=== PATIENT | female | born 1980 | race African-American/Black ===

== ENCOUNTER 2017-07-10 11:53 | Inpatient (IN) | payer OTHER, SELFPAY ==
[2017-07-10 12:21] LABS: Bilirubin Negative (Negative); Blood, Urine Small (Negative); Glucose, Urine (Dipstick) Negative (Negative); Ketone, Urine 15 mg/dL (Negative); Nitrite Negative (Negative); Protein, Urine (Dipstick) Negative (Neg-Trace); Urobilinogen 0.2 mg/dL (0.2-1.0)
[2017-07-10 12:35] LABS: Bacteria/HPF None Seen HPF (None Seen); Hyaline Casts/LPF 0-3 HYALINE CAST LPF (0-3 Hyaline); RBC/HPF None Seen HPF (0-3); Squamous Epithelial 0-3 HPF (0-3); WBC/HPF None Seen HPF (0-3)
[2017-07-10] MEDS ORDERED: Ketorolac Tromethamine 30 MG/ML VIAL ONE (12:37)
[2017-07-10 12:38] LABS: #Basophils 0.1 thou/uL (0.0-0.2); #Lymphocytes 1.4 thou/uL (1.20-3.40); #Monocytes 0.6 thou/uL (0.11-0.59); #Neutrophils 7.4 thou/uL (1.40-6.50); %Basophils 0.7 % (0.0-1.0); %Eosinophils 0.2 % (0.0-10.0); %Monocytes 6.7 % (0.0-10.0); Hematocrit 36.1 % (36.0-47.0); Mean Platelet Volume 7.6 fL (7.4-10.4); Red Blood Cell (RBC) Count 3.64 mill/uL (4.20-5.40); White Blood Cell (WBC) Count 9.5 thou/uL (4.8-10.8)
[2017-07-10 12:45] LABS: PTT 26.6 SEC (22.9-36.1); Prothrombin Time 13.8 SEC (12.0-14.7)
[2017-07-10 12:55] LABS: ALT (SGPT) 35 U/L (8-55); AST (SGOT) 62 U/L (5-34); Alkaline Phosphatase 52 U/L (40-150); Anion Gap 17 mmol/L (10-20); BUN (Urea Nitrogen) 7 mg/dL (7.0-18.7); Bilirubin, Total 0.4 mg/dL (0.2-1.2); CK (CPK) 2445 U/L (29-168); Calc. Creatinine Clearance 0 mL/min (70-130); Calcium 8.9 mg/dL (7.8-10.44); Carbon Dioxide 20 mmol/L (22-29); Chloride 102 mmol/L (98-107); Estimated GFR-MDRD Greater than 90; Globulin 3.5 g/dL (2.4-3.5); Lipase 7 U/L (8-78); Magnesium 2.4 mg/dL (1.6-2.6); Protein, Total 7.5 g/dL (6.0-8.3)
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
[2017-07-10] MEDS ORDERED: Lidocaine 1% (PF) 30 ML VIAL ONE (14:35)
[2017-07-10] MEDS ORDERED: Bupivacaine 0.25% 10 ML VIAL ONE (14:35)
--- NOTE | 2017-07-10 15:05 | RAD ---
PORTABLE AP CHEST: Date: 07-10-17 History: Chest injury. FINDINGS: There is increased density seen at the right lung base which may be related to atelectasis. There is no pneumothorax or obvious pleural effusion. Cardiac silhouette and pulmonary vasculature are withi n normal limits for the portable technique of the study. Osseous structures are intact. No obvious f racture is seen. IMPRESSION: 1. Atelectasis right lung base. 2. No acute cardiopulmonary process. POS: [facility]
[2017-07-10] MEDS ORDERED: Promethazine HCl 25 MG/ML VIAL IM PRN ×2 (16:40)
[2017-07-10] MEDS ORDERED: Rib Fracture Protocol PO SCH (16:40)
[2017-07-10] MEDS ORDERED: Ondansetron HCl/PF 4 MG/2 ML Vial IVP PRN (16:40)
[2017-07-10] MEDS ORDERED: Dextrose 50% Abboject 50 ML SYRINGE SLOW IVP PRN (16:40)
[2017-07-10] MEDS ORDERED: Ondansetron ODT 4 MG TAB PO PRN (16:40)
[2017-07-10] MEDS ORDERED: Dextrose 5% in Water 1,000 ML IV PRN (16:40)
[2017-07-10] MEDS ORDERED: Cyclobenzaprine 10 MG TAB PO PRN (17:00)
[2017-07-10] MEDS: traMADol HCl 50 MG TAB PO SCH (17:40)
[2017-07-10] MEDS ORDERED: Acetaminophen 500 MG TAB PO SCH (18:00)
[2017-07-10] MEDS ORDERED: Ibuprofen 600 MG TAB PO SCH (18:00)
[2017-07-10 18:24] VITALS: BMI 21.6
[2017-07-10] MEDS: Sodium Chloride 0.9% 1,000 ML IV SCH (18:46)
[2017-07-10] MEDS: Famotidine 20 MG TAB PO SCH (21:45)
[2017-07-10] MEDS: Gabapentin 100 MG CAP PO SCH (21:45)
[2017-07-11] MEDS: traMADol HCl 50 MG TAB PO SCH ×5 (00:06→23:25)
[2017-07-11] MEDS: HYDROcodone/Acetaminophen 10/325 mg Tablet PO SCH ×6 (00:07→21:06)
[2017-07-11] MEDS: Ketorolac Tromethamine 30 MG/ML VIAL IVP SCH ×5 (00:07→23:26)
[2017-07-11] MEDS: Sodium Chloride 0.9% 1,000 ML IV SCH ×2 (05:25→06:01)
[2017-07-11 05:56] LABS: #Eosinphils 0.1 thou/uL (0.0-0.7); #Lymphocytes 2.2 thou/uL (1.20-3.40); #Monocytes 0.5 thou/uL (0.11-0.59); %Basophils 0.6 % (0.0-1.0); %Eosinophils 1.3 % (0.0-10.0); Hematocrit 29.5 % (36.0-47.0); Mean Platelet Volume 7.1 fL (7.4-10.4); Red Blood Cell (RBC) Count 2.94 mill/uL (4.20-5.40); White Blood Cell (WBC) Count 7.8 thou/uL (4.8-10.8)
[2017-07-11 06:35] LABS: Anion Gap 14 mmol/L (10-20); BUN (Urea Nitrogen) 9 mg/dL (7.0-18.7); Calc. Creatinine Clearance 108 mL/min (70-130); Carbon Dioxide 20 mmol/L (22-29); Chloride 107 mmol/L (98-107); Estimated GFR-MDRD Greater than 90
--- NOTE | 2017-07-11 07:44 | RAD ---
SINGLE VIEW OF THE CHEST: COMPARISON: 07/10/17. HISTORY: Right hemothorax. FINDINGS: A single view of the chest shows a cardiomediastinal silhouette which his upper limits of normal in size. There is a moderate-sized right pleural effusion. No pneumothorax is appreciated. IMPRESSION: Moderate right pleural effusion. POS: [facility]
[2017-07-11] MEDS ORDERED: Lidocaine 1% (PF) 30 ML VIAL SC SCH (07:45)
[2017-07-11] MEDS: Gabapentin 100 MG CAP PO SCH ×3 (08:33→21:06)
[2017-07-11] MEDS: Famotidine 20 MG TAB PO SCH ×2 (08:33→21:06)
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
[2017-07-11] MEDS ORDERED: Morphine Sulfate 2 MG/ML SYRINGE SLOW IVP PRN (15:35)
--- NOTE | 2017-07-11 20:34 | RAD ---
PORTABLE AP CHEST RADIOGRAPH: Date: 07-11-17 History: Right sided thoracotomy tube placement. Comparison: 07-11-17 FINDINGS: There has been interval placement of a right sided thoracotomy tube with tip overlying the medial ri ght lung apex. There has been interval decrease in right pleural effusion. There is a dense area of rounded opacity at the right lung base which may be related to an area of rounded atelectasis, but f ollow up to complete resolution is recommended. There is atelectasis at the left lung base. No pneum othorax is identified. Cardiac silhouette and pulmonary vasculature are within normal limits. No oth er interval change. IMPRESSION: 1. Interval placement right sided thoracotomy tube with almost complete resolution of right pleural effusion. 2. Volume loss at the right lung base. There is also a rounded area of increased density at the righ t lung base which could be related to rounded area of persistent atelectasis. However, follow up to complete resolution is recommended as other etiologies are not entirely excluded. POS: [facility]
[2017-07-12] MEDS: HYDROcodone/Acetaminophen 10/325 mg Tablet PO SCH ×7 (00:07→23:57)
[2017-07-12] MEDS: Sodium Chloride 0.9% 1,000 ML IV SCH ×2 (02:37→08:52)
[2017-07-12 06:16] LABS: #Eosinphils 0.1 thou/uL (0.0-0.7); #Lymphocytes 1.8 thou/uL (1.20-3.40); #Monocytes 0.6 thou/uL (0.11-0.59); #Neutrophils 6.5 thou/uL (1.40-6.50); %Basophils 0.4 % (0.0-1.0); %Eosinophils 1.4 % (0.0-10.0); %Lymphocytes 19.9 % (21.0-51.0); %Monocytes 6.9 % (0.0-10.0); Hematocrit 32.3 % (36.0-47.0); Red Blood Cell (RBC) Count 3.17 mill/uL (4.20-5.40)
[2017-07-12] MEDS: traMADol HCl 50 MG TAB PO SCH ×4 (06:17→23:57)
[2017-07-12] MEDS: Ketorolac Tromethamine 30 MG/ML VIAL IVP SCH ×4 (06:17→23:58)
[2017-07-12 07:39] LABS: Anion Gap 13 mmol/L (10-20); BUN (Urea Nitrogen) 6 mg/dL (7.0-18.7); Calc. Creatinine Clearance 111 mL/min (70-130); Calcium 8.5 mg/dL (7.8-10.44); Carbon Dioxide 19 mmol/L (22-29); Chloride 106 mmol/L (98-107); Estimated GFR-MDRD Greater than 90; Magnesium 2.2 mg/dL (1.6-2.6); Phosphorus 3.1 mg/dL (2.3-4.7)
[2017-07-12] MEDS: Gabapentin 100 MG CAP PO SCH ×2 (08:47→14:17)
[2017-07-12] MEDS: Famotidine 20 MG TAB PO SCH ×2 (08:47→22:07)
--- NOTE | 2017-07-12 09:27 | RAD ---
SINGLE VIEW OF THE CHEST: Comparison: 07-11-17 History: Chest tube placement. FINDINGS: Single view of the chest shows a normal sized cardiomediastinal silhouette. A right sided chest tube is seen. The right pleural effusion has decreased in size. There are airspace opacities in both fitz gs which may represent multifocal pneumonia. No pneumothorax is seen. IMPRESSION: 1. Multifocal pneumonia. 2. Decreased size of right pleural effusion after chest tube placement. POS: [facility]
[2017-07-12] MEDS ORDERED: Potassium Chloride 20 MEQ TAB PO SCH (12:30)
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
[2017-07-12] MEDS ORDERED: HYDROcodone/Acetaminophen 10/325 mg Tablet PO PRN (15:34)
[2017-07-12] MEDS: HYDROcodone/Acetaminophen 10/325 mg Tablet PO PRN (17:19)
[2017-07-12] MEDS: Cyclobenzaprine 10 MG TAB PO PRN (19:32)
--- NOTE | 2017-07-12 19:46 | RAD ---
PORTABLE AP CHEST X-RAY: 07/12/17 HISTORY: Shortness of breath and tachycardia. COMPARISON: 07/12/17 at 0648 hours. FINDINGS: Right sided thoracostomy tube remains in place and unchanged in position. Again noted are increased interstitial and alveolar opacities within the lungs bilaterally with more rounded confluent opacity seen at the right lung base which could be related to persistent rounded area of atelectasis or a r ounded pneumonia. No pleural effusion is evident. There has been no significant interval change when compared to the prior exam. IMPRESSION: 1. Multifocal interstitial and alveolar opacities likely related to infectious process. 2. Persistent dense rounded area of opacity at the right lung base which could be related to ei ther rounded area of atelectasis or pneumonia. Continued followup to complete resolution is recommen ded. 3. Right sided thoracostomy tube without a pneumothorax visualized. POS: [facility]
[2017-07-12] MEDS: Gabapentin 300 MG CAP PO SCH (22:07)
[2017-07-13] MEDS ORDERED: Oxazepam 10 MG CAP PO SCH ×2 (00:01→16:00)
[2017-07-13] MEDS ORDERED: Levalbuterol HCl 0.63 MG/3 ML NEB NEB SCH (00:15)
[2017-07-13] MEDS: HYDROcodone/Acetaminophen 10/325 mg Tablet PO SCH ×5 (04:12→19:38)
[2017-07-13] MEDS: traMADol HCl 50 MG TAB PO SCH ×4 (05:53→23:20)
[2017-07-13] MEDS: Oxazepam 10 MG CAP PO SCH ×4 (05:56→23:19)
[2017-07-13] MEDS: Ketorolac Tromethamine 30 MG/ML VIAL IVP SCH ×4 (05:56→23:17)
[2017-07-13] MEDS ORDERED: Potassium Chloride 40 MEQ in Sodium Chloride 0.9% 250 ML 250 ML IVPB SCH (06:45)
[2017-07-13] MEDS: Levalbuterol HCl 0.63 MG/3 ML NEB NEB SCH ×3 (07:01→21:38)
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
[2017-07-13 08:13] LABS: Red Blood Cell (RBC) Count 2.88 mill/uL (4.20-5.40); White Blood Cell (WBC) Count 8.3 thou/uL (4.8-10.8)
[2017-07-13 08:14] LABS: #Eosinphils 0.1 thou/uL (0.0-0.7); #Lymphocytes 1.6 thou/uL (1.20-3.40); #Monocytes 0.7 thou/uL (0.11-0.59); #Neutrophils 5.9 thou/uL (1.40-6.50); %Basophils 0.3 % (0.0-1.0); %Eosinophils 1.5 % (0.0-10.0); %Lymphocytes 19.4 % (21.0-51.0); %Monocytes 8.5 % (0.0-10.0); Mean Platelet Volume 7.3 fL (7.4-10.4)
[2017-07-13] MEDS: Gabapentin 300 MG CAP PO SCH ×3 (08:31→20:48)
[2017-07-13] MEDS: Famotidine 20 MG TAB PO SCH ×2 (08:32→20:48)
[2017-07-13 08:34] LABS: ALT (SGPT) 19 U/L (8-55); AST (SGOT) 33 U/L (5-34); Alkaline Phosphatase 61 U/L (40-150); Anion Gap 12 mmol/L (10-20); BUN (Urea Nitrogen) 4 mg/dL (7.0-18.7); Bilirubin, Total 0.4 mg/dL (0.2-1.2); Calc. Creatinine Clearance 143 mL/min (70-130); Calcium 8.7 mg/dL (7.8-10.44); Carbon Dioxide 23 mmol/L (22-29); Chloride 105 mmol/L (98-107); Estimated GFR-MDRD Greater than 90
[2017-07-13 09:03] LABS: Magnesium 1.5 mg/dL (1.6-2.6); Phosphorus 3.7 mg/dL (2.3-4.7)
--- NOTE | 2017-07-13 10:38 | ULT ---
BILATERAL LOWER EXTREMITY VENOUS DUPLEX EXAM: HISTORY: Leg pain and edema. FINDINGS: Real-time color Doppler evaluation of the right and left lower extremities was performed from groin to calf. This includes evaluation of the common femoral, superficial and profunda femoral, saphenou s, popliteal, and trifurcation veins. This shows a patent deep venous system. There is normal comp ressibility and augmentation. There is no evidence of DVT. IMPRESSION: No evidence of deep vein thrombosis of either lower extremity. POS: [facility]
[2017-07-13] MEDS ORDERED: Furosemide 20 MG/2 ML VIAL SLOW IVP SCH ×2 (11:00→11:15)
[2017-07-13] MEDS: Enoxaparin Sodium 40 MG/0.4 ML SYRINGE SC SCH (11:04)
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
[2017-07-13] MEDS: cefTRIAXone\\ROCEPHIN 2 GM in Sodium Chloride 0.9% 100 ML IVPB SCH (12:16)
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
[2017-07-13] MEDS ORDERED: ISOVUE-370 76%-LOCM 1 ML ONE (14:07)
[2017-07-13] MEDS: Furosemide 20 MG/2 ML VIAL SLOW IVP SCH (15:04)
[2017-07-13] MEDS ORDERED: Senokot 8.6 MG TAB PO SCH (15:15)
[2017-07-13 23:36] LABS: #Basophils 0.1 thou/uL (0.0-0.2); #Eosinphils 0.1 thou/uL (0.0-0.7); #Lymphocytes 1.5 thou/uL (1.20-3.40); #Monocytes 1.1 thou/uL (0.11-0.59); #Neutrophils 7.5 thou/uL (1.40-6.50); %Basophils 0.7 % (0.0-1.0); %Eosinophils 1.3 % (0.0-10.0); %Lymphocytes 14.9 % (21.0-51.0); %Monocytes 10.9 % (0.0-10.0); Hematocrit 29.6 % (36.0-47.0); Mean Platelet Volume 6.9 fL (7.4-10.4); Red Blood Cell (RBC) Count 2.92 mill/uL (4.20-5.40); White Blood Cell (WBC) Count 10.3 thou/uL (4.8-10.8)
[2017-07-14] LABS: Anion Gap 15 mmol/L (10-20); BUN (Urea Nitrogen) 9 mg/dL (7.0-18.7); Calc. Creatinine Clearance 125 mL/min (70-130); Carbon Dioxide 26 mmol/L (22-29); Chloride 98 mmol/L (98-107); Estimated GFR-MDRD Greater than 90; Magnesium 1.5 mg/dL (1.6-2.6); Phosphorus 3.2 mg/dL (2.3-4.7)
[2017-07-14] MEDS: HYDROcodone/Acetaminophen 10/325 mg Tablet PO SCH ×6 (00:04→20:00)
[2017-07-14] MEDS ORDERED: Magnesium Sulfate 4 GM in Sodium Chloride 0.9% 250 ML 250 ML IVPB SCH (00:30)
[2017-07-14 04:26] LABS: #Eosinphils 0.2 thou/uL (0.0-0.7); #Lymphocytes 1.8 thou/uL (1.20-3.40); #Monocytes 0.9 thou/uL (0.11-0.59); #Neutrophils 7.1 thou/uL (1.40-6.50); %Basophils 0.3 % (0.0-1.0); %Eosinophils 1.6 % (0.0-10.0); %Lymphocytes 17.7 % (21.0-51.0); %Monocytes 9.4 % (0.0-10.0); Hematocrit 29.8 % (36.0-47.0); Mean Platelet Volume 7.7 fL (7.4-10.4); Red Blood Cell (RBC) Count 2.95 mill/uL (4.20-5.40)
[2017-07-14 04:55] LABS: Anion Gap 13 mmol/L (10-20); BUN (Urea Nitrogen) 8 mg/dL (7.0-18.7); Calc. Creatinine Clearance 130 mL/min (70-130); Calcium 8.7 mg/dL (7.8-10.44); Carbon Dioxide 27 mmol/L (22-29); Chloride 98 mmol/L (98-107); Estimated GFR-MDRD Greater than 90; Magnesium 3.2 mg/dL (1.6-2.6); Phosphorus 4.2 mg/dL (2.3-4.7)
[2017-07-14] MEDS: traMADol HCl 50 MG TAB PO SCH ×3 (05:45→17:11)
[2017-07-14] MEDS: Furosemide 20 MG/2 ML VIAL SLOW IVP SCH ×2 (05:47→13:54)
[2017-07-14] MEDS: Levalbuterol HCl 0.63 MG/3 ML NEB NEB SCH ×3 (07:46→22:02)
[2017-07-14] MEDS: Enoxaparin Sodium 40 MG/0.4 ML SYRINGE SC SCH (07:56)
[2017-07-14] MEDS: Polyethylene Glycol 3350 17 GM Packet PO SCH (07:56)
[2017-07-14] MEDS: Famotidine 20 MG TAB PO SCH ×2 (07:57→21:20)
[2017-07-14] MEDS: Gabapentin 300 MG CAP PO SCH ×3 (07:57→21:20)
[2017-07-14] MEDS: Oxazepam 10 MG CAP PO SCH ×3 (07:57→21:30)
[2017-07-14] MEDS ORDERED: Furosemide 20 MG/2 ML VIAL SLOW IVP SCH (08:10)
[2017-07-14] MEDS ORDERED: Potassium Chloride 40 MEQ in Sodium Chloride 0.9% 250 ML 250 ML IVPB SCH ×2 (08:30→09:30)
--- NOTE | 2017-07-14 09:05 | EKG ---
Test Reason : STAT Blood Pressure : / mmHG Vent. Rate : 131 BPM Atrial Rate : 131 BPM P-R Int : 162 ms QRS Dur : 084 ms QT Int : 282 ms P-R-T Axes : 047 052 003 degrees QTc Int : 416 ms Sinus tachycardia Nonspecific T wave abnormality Abnormal ECG When compared with ECG of 10-JUL-2017 12:02, (Unconfirmed) Inverted T waves have replaced nonspecific T wave abnormality in Inferior leads Nonspecific T wave abnormality now evident in Anterior leads Confirmed by TRISTON LUZ ([id number]) on 07/14/2017 9:05:26 AM Referred By: SIRISHA Confirmed By:TRISTON LUZ
[2017-07-14] MEDS: cefTRIAXone\\ROCEPHIN 2 GM in Sodium Chloride 0.9% 100 ML IVPB SCH (13:54)
[2017-07-15] MEDS: traMADol HCl 50 MG TAB PO SCH ×2 (00:09→06:28)
[2017-07-15] MEDS: HYDROcodone/Acetaminophen 10/325 mg Tablet PO SCH ×5 (00:10→20:46)
[2017-07-15] MEDS: Oxazepam 10 MG CAP PO SCH ×2 (04:32→20:46)
[2017-07-15] MEDS: Furosemide 20 MG/2 ML VIAL SLOW IVP SCH ×2 (06:30→14:57)
[2017-07-15] MEDS: Levalbuterol HCl 0.63 MG/3 ML NEB NEB SCH ×3 (06:48→22:10)
[2017-07-15] MEDS: Polyethylene Glycol 3350 17 GM Packet PO SCH (08:07)
[2017-07-15] MEDS: Gabapentin 300 MG CAP PO SCH ×3 (08:09→20:46)
[2017-07-15] MEDS: Famotidine 20 MG TAB PO SCH ×2 (08:09→20:46)
[2017-07-15] MEDS: Enoxaparin Sodium 40 MG/0.4 ML SYRINGE SC SCH (08:10)
[2017-07-15] MEDS ORDERED: Potassium Chloride 40 MEQ in Sodium Chloride 0.9% 250 ML 250 ML IVPB SCH (08:30)
[2017-07-15 09:40] LABS: Anion Gap 17 mmol/L (10-20); BUN (Urea Nitrogen) 15 mg/dL (7.0-18.7); Calc. Creatinine Clearance 94 mL/min (70-130); Carbon Dioxide 24 mmol/L (22-29); Chloride 95 mmol/L (98-107); Estimated GFR-MDRD 84; Magnesium 2.2 mg/dL (1.6-2.6)
--- NOTE | 2017-07-15 10:53 | RAD ---
PORTABLE CHEST 1 VIEW: Date: 07/15/17 Time: 0903 hours HISTORY: Hypoxia, rib fractures, chest tube removal. FINDINGS/IMPRESSION: There has been interval removal of the right-sided chest tube since exam of 07/13/17. No definite pn eumothorax is seen. Remainder of exam is otherwise stable. POS: [facility]
[2017-07-15] MEDS: cefTRIAXone\\ROCEPHIN 2 GM in Sodium Chloride 0.9% 100 ML IVPB SCH (11:08)
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
[2017-07-16] MEDS: HYDROcodone/Acetaminophen 10/325 mg Tablet PO PRN ×2 (00:11→23:46)
[2017-07-16] MEDS: HYDROcodone/Acetaminophen 10/325 mg Tablet PO SCH ×4 (03:30→20:35)
[2017-07-16] MEDS: Levalbuterol HCl 0.63 MG/3 ML NEB NEB SCH ×3 (06:31→23:53)
[2017-07-16] MEDS: Furosemide 20 MG/2 ML VIAL SLOW IVP SCH (06:42)
[2017-07-16 09:10] LABS: Anion Gap 19 mmol/L (10-20); BUN (Urea Nitrogen) 12 mg/dL (7.0-18.7); Calc. Creatinine Clearance 113 mL/min (70-130); Calcium 9.2 mg/dL (7.8-10.44); Carbon Dioxide 27 mmol/L (22-29); Chloride 93 mmol/L (98-107); Estimated GFR-MDRD Greater than 90; Magnesium 2.2 mg/dL (1.6-2.6); Phosphorus 3.8 mg/dL (2.3-4.7)
[2017-07-16] MEDS: Polyethylene Glycol 3350 17 GM Packet PO SCH (09:16)
[2017-07-16] MEDS: Oxazepam 10 MG CAP PO SCH ×2 (09:16→20:35)
[2017-07-16] MEDS: Gabapentin 300 MG CAP PO SCH ×3 (09:16→20:35)
[2017-07-16] MEDS: Enoxaparin Sodium 40 MG/0.4 ML SYRINGE SC SCH (09:17)
[2017-07-16] MEDS: Famotidine 20 MG TAB PO SCH ×2 (09:17→20:35)
[2017-07-16] MEDS: cefTRIAXone\\ROCEPHIN 2 GM in Sodium Chloride 0.9% 100 ML IVPB SCH (12:06)
[2017-07-16] MEDS: Cyclobenzaprine 10 MG TAB PO PRN (12:07)
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
[2017-07-17] MEDS: HYDROcodone/Acetaminophen 10/325 mg Tablet PO SCH ×4 (02:05→21:24)
[2017-07-17] MEDS: Cyclobenzaprine 10 MG TAB PO PRN ×2 (02:06→18:04)
[2017-07-17 05:50] LABS: #Basophils 0.1 thou/uL (0.0-0.2); #Eosinphils 0.2 thou/uL (0.0-0.7); #Lymphocytes 2.2 thou/uL (1.20-3.40); #Monocytes 1.3 thou/uL (0.11-0.59); #Neutrophils 5.7 thou/uL (1.40-6.50); %Basophils 0.6 % (0.0-1.0); %Lymphocytes 23.4 % (21.0-51.0); %Monocytes 13.3 % (0.0-10.0); Hematocrit 28.6 % (36.0-47.0); Mean Platelet Volume 8.3 fL (7.4-10.4); Red Blood Cell (RBC) Count 2.83 mill/uL (4.20-5.40); White Blood Cell (WBC) Count 9.4 thou/uL (4.8-10.8)
[2017-07-17 06:16] LABS: Anion Gap 13 mmol/L (10-20); BUN (Urea Nitrogen) 7 mg/dL (7.0-18.7); Calc. Creatinine Clearance 113 mL/min (70-130); Calcium 9.7 mg/dL (7.8-10.44); Carbon Dioxide 31 mmol/L (22-29); Chloride 93 mmol/L (98-107); Estimated GFR-MDRD Greater than 90; Magnesium 2.2 mg/dL (1.6-2.6); Phosphorus 3.2 mg/dL (2.3-4.7)
[2017-07-17] MEDS: Levalbuterol HCl 0.63 MG/3 ML NEB NEB SCH ×2 (08:17→14:51)
[2017-07-17] MEDS ORDERED: Potassium Chloride 20 MEQ TAB PO SCH (08:30)
[2017-07-17] MEDS: Famotidine 20 MG TAB PO SCH ×2 (08:47→21:23)
[2017-07-17] MEDS: Oxazepam 10 MG CAP PO SCH ×2 (08:47→21:23)
[2017-07-17] MEDS: Gabapentin 300 MG CAP PO SCH ×3 (08:47→21:23)
[2017-07-17] MEDS: Polyethylene Glycol 3350 17 GM Packet PO SCH (08:47)
[2017-07-17] MEDS: Enoxaparin Sodium 40 MG/0.4 ML SYRINGE SC SCH (08:50)
[2017-07-17] MEDS ORDERED: Furosemide 20 MG TAB PO SCH (09:00)
--- NOTE | 2017-07-17 10:29 | RAD ---
RADIOGRAPH CHEST 1 VIEW: Date: 07/17/17 Time: 0547 HOURS HISTORY: 36-year-old female with hypoxia. COMPARISON: 07/15/17 at 0903 hours. FINDINGS: There has been no significant interval change. Lung volumes are low. IMPRESSION: 1. Bilaterally heterogeneously distributed mixed interstitial and air space densities. 2. Cardiomegaly. 3. No evidence of pneumothorax. 4. No interval change. AMELIA [] POS: STEPHANY
[2017-07-17] MEDS ORDERED: AcetaZOLAMIDE 250 MG TAB PO SCH (12:30)
[2017-07-17] MEDS: cefTRIAXone\\ROCEPHIN 2 GM in Sodium Chloride 0.9% 100 ML IVPB SCH (12:38)
[2017-07-17] MEDS: HYDROcodone/Acetaminophen 10/325 mg Tablet PO PRN (12:40)
[2017-07-17] MEDS: Ibuprofen 800 MG TAB PO SCH ×2 (14:29→21:23)
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
[2017-07-17] MEDS ORDERED: FLU VACC QS2017-18 36 mo. & older 0.5 ML SYRINGE IM ONE (21:00)
[2017-07-17] MEDS: AcetaZOLAMIDE 250 MG TAB PO SCH (21:23)
[2017-07-18] MEDS: Levalbuterol HCl 0.63 MG/3 ML NEB NEB SCH ×4 (00:04→22:43)
[2017-07-18] MEDS: HYDROcodone/Acetaminophen 10/325 mg Tablet PO SCH ×2 (02:25→08:26)
[2017-07-18 05:45] LABS: Anion Gap 12 mmol/L (10-20); BUN (Urea Nitrogen) 10 mg/dL (7.0-18.7); Calc. Creatinine Clearance 92 mL/min (70-130); Calcium 9.6 mg/dL (7.8-10.44); Carbon Dioxide 28 mmol/L (22-29); Chloride 101 mmol/L (98-107); Estimated GFR-MDRD 82; Magnesium 2.4 mg/dL (1.6-2.6); Phosphorus 4.5 mg/dL (2.3-4.7)
[2017-07-18] MEDS: Ibuprofen 800 MG TAB PO SCH ×3 (05:46→21:29)
[2017-07-18] MEDS ORDERED: Potassium Chloride 20 MEQ TAB PO SCH (07:45)
[2017-07-18] MEDS: Oxazepam 10 MG CAP PO SCH ×2 (08:26→21:30)
[2017-07-18] MEDS: AcetaZOLAMIDE 250 MG TAB PO SCH ×2 (08:27→21:30)
[2017-07-18] MEDS: Famotidine 20 MG TAB PO SCH ×2 (08:27→21:29)
[2017-07-18] MEDS: Enoxaparin Sodium 40 MG/0.4 ML SYRINGE SC SCH (08:27)
[2017-07-18] MEDS: Polyethylene Glycol 3350 17 GM Packet PO SCH (08:27)
[2017-07-18] MEDS: Gabapentin 300 MG CAP PO SCH ×3 (08:27→21:29)
[2017-07-18 12:17] LABS: Amphetamine Not Detected (NotDetected); Methadone Not Detected (NotDetected); Methamphetamine Not Detected (NotDetected)
[2017-07-18] MEDS: cefTRIAXone\\ROCEPHIN 2 GM in Sodium Chloride 0.9% 100 ML IVPB SCH (12:20)
[2017-07-18] MEDS: HYDROcodone/Acetaminophen 7.5/325 mg Tablet PO SCH ×3 (12:20→21:29)
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
[2017-07-18] MEDS: HYDROcodone/Acetaminophen 7.5/325 mg Tablet PO PRN (18:48)
[2017-07-19] MEDS: HYDROcodone/Acetaminophen 7.5/325 mg Tablet PO SCH ×4 (06:06→22:15)
[2017-07-19] MEDS: Ibuprofen 800 MG TAB PO SCH ×3 (06:06→22:15)
[2017-07-19 06:26] LABS: Anion Gap 13 mmol/L (10-20); BUN (Urea Nitrogen) 8 mg/dL (7.0-18.7); Calc. Creatinine Clearance 109 mL/min (70-130); Calcium 9.2 mg/dL (7.8-10.44); Carbon Dioxide 18 mmol/L (22-29); Chloride 109 mmol/L (98-107); Estimated GFR-MDRD Greater than 90; Magnesium 2.5 mg/dL (1.6-2.6); Phosphorus 5.5 mg/dL (2.3-4.7)
[2017-07-19] MEDS: Levalbuterol HCl 0.63 MG/3 ML NEB NEB SCH ×3 (06:48→22:42)
[2017-07-19] MEDS: Polyethylene Glycol 3350 17 GM Packet PO SCH (08:15)
[2017-07-19] MEDS: Enoxaparin Sodium 40 MG/0.4 ML SYRINGE SC SCH (08:15)
[2017-07-19] MEDS: AcetaZOLAMIDE 250 MG TAB PO SCH (08:16)
[2017-07-19] MEDS: HYDROcodone/Acetaminophen 7.5/325 mg Tablet PO PRN (08:17)
[2017-07-19] MEDS: Famotidine 20 MG TAB PO SCH ×3 (08:21→20:54)
[2017-07-19] MEDS: Gabapentin 300 MG CAP PO SCH ×4 (08:21→20:54)
[2017-07-19] MEDS: Oxazepam 10 MG CAP PO SCH ×3 (08:21→20:54)
--- NOTE | 2017-07-19 09:12 | RAD ---
CHEST 2 VIEWS: HISTORY: Pneumothorax. Rib fracture. Followup. COMPARISON: 07/17/17. FINDINGS: Cardiac silhouette is enlarged. Pulmonary vasculature is slightly less engorged than on the previou s exam. Reticulonodular interstitial prominence throughout each lung is less pronounced than on the previous exam. Mediastinum is midline. No pneumothorax is apparent. No significant pleural fluid is visible. IMPRESSION: No evidence of pneumothorax. Improved aeration of the lungs. POS: [facility]
[2017-07-19] MEDS: Furosemide 20 MG TAB PO SCH ×3 (09:45→20:54)
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
[2017-07-19] MEDS: cefTRIAXone\\ROCEPHIN 2 GM in Sodium Chloride 0.9% 100 ML IVPB SCH (12:32)
[2017-07-20] MEDS: HYDROcodone/Acetaminophen 7.5/325 mg Tablet PO SCH ×3 (05:17→17:07)
[2017-07-20] MEDS: Ibuprofen 800 MG TAB PO SCH ×2 (05:17→14:46)
[2017-07-20 05:38] LABS: #Basophils 0.1 thou/uL (0.0-0.2); #Eosinphils 0.6 thou/uL (0.0-0.7); #Lymphocytes 2.7 thou/uL (1.20-3.40); #Monocytes 1.5 thou/uL (0.11-0.59); #Neutrophils 9.9 thou/uL (1.40-6.50); %Basophils 0.5 % (0.0-1.0); %Eosinophils 4.2 % (0.0-10.0); %Lymphocytes 18.1 % (21.0-51.0); %Monocytes 10.4 % (0.0-10.0); Hematocrit 30.9 % (36.0-47.0); Mean Platelet Volume 7.2 fL (7.4-10.4); Red Blood Cell (RBC) Count 3.02 mill/uL (4.20-5.40); White Blood Cell (WBC) Count 14.9 thou/uL (4.8-10.8)
[2017-07-20 05:59] LABS: Anion Gap 16 mmol/L (10-20); BUN (Urea Nitrogen) 7 mg/dL (7.0-18.7); Calc. Creatinine Clearance 106 mL/min (70-130); Calcium 9.6 mg/dL (7.8-10.44); Carbon Dioxide 17 mmol/L (22-29); Chloride 110 mmol/L (98-107); Estimated GFR-MDRD Greater than 90; Magnesium 2.4 mg/dL (1.6-2.6); Phosphorus 5.9 mg/dL (2.3-4.7)
[2017-07-20] MEDS: Levalbuterol HCl 0.63 MG/3 ML NEB NEB SCH ×2 (06:16→14:22)
[2017-07-20] MEDS: Oxazepam 10 MG CAP PO SCH (08:59)
[2017-07-20] MEDS: Gabapentin 300 MG CAP PO SCH ×2 (08:59→14:47)
[2017-07-20] MEDS: Furosemide 20 MG TAB PO SCH (08:59)
[2017-07-20] MEDS: Enoxaparin Sodium 40 MG/0.4 ML SYRINGE SC SCH (08:59)
[2017-07-20] MEDS: Famotidine 20 MG TAB PO SCH (08:59)
[2017-07-20] MEDS: Polyethylene Glycol 3350 17 GM Packet PO SCH (09:46)
[2017-07-20] MEDS: cefTRIAXone\\ROCEPHIN 2 GM in Sodium Chloride 0.9% 100 ML IVPB SCH (11:57)
[2017-07-20] MEDS ORDERED: Potassium Chloride 20 MEQ TAB PO SCH (17:00)
[2017-07-20 19:30] VITALS: BP 124/86; TEMP 98
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
== END 2017-07-20 19:31 | disposition home or self-care (01) | DRG 963 ==
LOC: ERS 11:53 → SURG A 16:18 → IMCU/EMU 07-13 01:29 → SURG B 07-16 18:41
PROVIDERS: ADMIT Surgery; ATTEND Surgery
PROC: 0W9900Z Drainage of Right Pleural Cavity with Drainage Device, Open Approach (ICD-10-PCS; principal; 2017-07-11)
PROC: 5A09357 Assistance with Respiratory Ventilation, Less than 24 Consecutive Hours, Continuous Positive Airway Pressure (ICD-10-PCS; 2017-07-13)
DX: S27.1XXA Traumatic hemothorax, initial encounter (principal); J81.0 Acute pulmonary edema; T79.6XXA Traumatic ischemia of muscle, initial encounter; E87.3 Alkalosis; S27.329A Contusion of lung, unspecified, initial encounter; E83.42 Hypomagnesemia; S22.41XA Multiple fractures of ribs, right side, initial encounter for closed fracture; F17.210 Nicotine dependence, cigarettes, uncomplicated; V47.1XXA Car passenger injured in collision with fixed or stationary object in nontraffic accident, initial encounter; E87.6 Hypokalemia; R06.89 Other abnormalities of breathing
CPT/HCPCS: 36415; 36416; 71010; 71020; 71275; 80048; 80053; 80306; 81003; 81015; 81025; 82553; 83690; 83735; 83880; 84100; 84484; 85025; 85610; 85730; 86850; 86900; 86901; 87070; 87205; 90471; 90682; 93005; 93010; 93306; 93970; 94640; 94660; 96361; 96374; 96375; 96376; G0008; G0390; G8978-GP-CK; G8979-GP-CH; G8987-GO-CK; G8988-GO-CH; J0696; J1170; J1650; J1885; J2001; J2270; J3475; J3480; J7050; J7614; J7620; Q2036; S0020